=== PATIENT | female | born 1950 | race Caucasian/White ===

== ENCOUNTER → 2023-08-01 | Outpatient (CLI) | payer MEDICARE, OTHER, SELFPAY | END | disposition home or self-care (01) | LOC: PSN 10:33 | PROVIDERS: PCP Nurse Practitioner Family; Referring Provider Internal Medicine Critical Care Medicine; Visit Provider Internal Medicine Critical Care Medicine | DX: R06.09 Other forms of dyspnea (principal) | CPT/HCPCS: 94060; 94726; 94729 ==

== ENCOUNTER → 2023-09-02 | Outpatient (CLI) | payer MEDICARE, OTHER, SELFPAY ==
--- NOTE | 2023-09-02 12:16 | ECHOD_ITS ---
Reason For Study: DYSPNEA Procedure This was a 2D Doppler, Color Flow transthoracic echocardiogram. Exam performed in department. Left Ventricle Normal LV size. The estimated ejection fraction is 70 %. No evidence for diastolic dysfunction. No regional wall motion abnormalities noted. Right Ventricle Normal RV size. Normal systolic function. Atria Normal left atrium. Normal right atrium. No doppler evidence for ASD. Mitral Valve There is no mitral valve stenosis. No mitral valve insufficiency. Tricuspid Valve There is no tricuspid stenosis. Unable to estimate RV systolic pressure due to inadequate jet, pulmonary artery pressure probably normal. Aortic Valve Trisinus/trileaflet aortic valve. There is no aortic stenosis. No aortic valve insufficiency. Pulmonic Valve There is no pulmonic valvular stenosis. No pulmonic valve insufficiency. Great Vessels Normal aortic root. Pericardium/Pleural No pericardial effusion. MMode/2D Measurements & Calculations LVIDd: 3.5 cm IVSd: 0.96 cm LAV(MOD-bp): 36.6 ml LVIDs: 2.2 cm LVPWd: 0.91 cm LAV(MOD-bp) Indexed: 20.3 ml/m2 RVDd: 2.3 cm FS: 36.9 % LAV(MOD-sp2): 42.4 ml LAV(MOD-sp4): 22.7 ml SV(MOD-sp4): 35.2 ml SV(sp4-el): 38.1 ml LVAd ap4: 21.1 cm2 LVLd ap4: 7.3 cm EDV(MOD-sp4): 50.0 ml EDV(sp4-el): 52.2 ml LVAs ap4: 9.5 cm2 LVLs ap4: 5.4 cm ESV(MOD-sp4): 14.8 ml ESV(sp4-el): 14.1 ml EF(MOD-sp4): 70.5 % EF(sp4-el): 72.9 % LA A4 area: 10.3 cm2 RA A4 area: 9.9 cm2 TAPSE: 2.6 cm Time Measurements MV dec time: 0.27 sec Doppler Measurements & Calculations MV E max rasheed: 91.2 cm/sec Lat Peak E' Rasheed: 8.4 cm/sec Med Peak E' Rasheed: 8.9 cm/sec MV A max rasheed: 101.0 cm/sec E/E' lat: 10.9 E/E' med: 10.3 MV E/A: 0.90 MV V2 max: 104.4 cm/sec MV dec slope: 352.9 cm/sec2 Ao V2 max: 158.2 cm/sec MV max P.4 mmHg Ao max P.1 mmHg MV V2 mean: 67.7 cm/sec Ao V2 mean: 111.7 cm/sec MV mean P.1 mmHg Ao mean P.6 mmHg MV V2 VTI: 33.4 cm Ao V2 VTI: 33.6 cm AV (velocity ratio): 0.90 LV V1 max: 132.9 cm/sec PA V2 max: 100.8 cm/sec LV V1 max P.1 mmHg PA V2 mean: 67.3 cm/sec LV V1 mean P.2 mmHg LV V1 mean: 96.9 cm/sec LV V1 VTI: 30.1 cm ECHO/Echo Complete Interpretation Summary The estimated ejection fraction is 70 %. No evidence for diastolic dysfunction. Ordering Physician: Rafael Pan Referring Physician: Rafael Pan Performed By: Sandra Ochoa RCS
[2023-09-02 12:51] VITALS: PULSE 100; PULSE 105; PULSE 106; PULSE 108; PULSE 84; PULSE 87; PULSE 90; PULSE 99; O2SAT 86; O2SAT 88; O2SAT 91; O2SAT 92; O2SAT 96
--- OUTSIDE RECORDS SUMMARY | 2023-09-02 15:11 | XMS RPT_ITS | CCD ---
Author Name Unknown Address [address] [place] [address] Organization [facility] Care Team Providers Care Cruise Consultant Name Role Phone VIVIANA HUDSON Unavailable Unavailable VIVIANA HUDSON Unavailable Unavailable Aylin TREE PRUNER, Barbra Primary Care Provider Aylin TREE PRUNER, Barbra Primary Care Provider SALAS PETERSEN Admitting Unavailab BARBRA Carrillo Primary Care Unavailable SALAS PETERSEN Attending Unavailab le SALAS PETERSEN Referring Unavailab BARBRA Carirllo Primary Care Unavailable OG OJEDA Attending Unavailable BARBRA VIERA Primary Care Unavailable FRANK UP Admitting Unavailable FRANK UP Referring Unavailable SALAS PETERSEN Attending Unavailab BARBRA Carrillo Primary Care Unavailable OG OJEDA Attending Unavailable BARBRA VIERA Primary Care Unavailable SALAS PETERSEN Attending Unavailab le VICSALAS FREEMAN Referring Unavailab le VICSALAS FREEMAN Admitting Unavailab BARBRA Carrillo Primary Care Unavailable DAVID LANDIN Attending Unavailable SALAS PETERSEN Referring Unavailab BARBRA Carrillo Primary Care Unavailable SALAS PETERSEN Admitting Unavailab AMAURY Chino Attending Unavailable SALAS PEETRSEN Referring Unavailab le HIREMATCHERYL Amor Attending Unav ailable CHERYL BECERRIL Referring Unav ailable BARBRA VIERA Primary Care Unavailable SALAS PETERSEN Admitting Unavailab le WATTEARNESTINE Attending Unavailable BARBRA VIERA Primary Care Unavailable VICSALAS Referring Unavailab le Gaby OLMEDO [facility] Primary Care Provider Unavail able Art PT, DPT, Katerine Unavailable Unavailable BARBRA VIERA Primary Care Unavailable HIREMATH, CHERYL HUTCHINSONSHCHARMAINE Attending Unav ailable BARBRA VIERA Primary Care Unavailable VIC, SALAS YBARRA Admitting Unavailab le VIC, SALAS YBARRA Referring Unavailab le HIREMATHCHERYL Attending Unav ailable BARBRA VIERA GENETICS TEACHER Admitting Unavailable BARBRA VIERA GENETICS TEACHER Primary Care Unavailable BARBRA VIERA GENETICS TEACHER Consulting Unavailable BARBRA VIERA GENETICS TEACHER Attending Unavailable PROVIDER, UNKNOWN Consulting Unavailable PROVIDER, UNKNOWN Consulting Unavailable BARBRA VIERA GENETICS TEACHER Admitting Unavailable AYLIN, BARBRA GENETICS TEACHER Primary Care Unavailable BARBRA VIERA GENETICS TEACHER Consulting Unavailable BARBRA VIERA GENETICS TEACHER Attending Unavailable PROVIDER, UNKNOWN Consulting Unavailable PROVIDER, UNKNOWN Consulting Unavailable BARBRA VIERA GENETICS TEACHER Admitting Unavailable BARBRA VIERA GENETICS TEACHER Primary Care Unavailable BARBRA VIERA GENETICS TEACHER Consulting Unavailable BARBRA VIERA GENETICS TEACHER Attending Unavailable PROVIDER, UNKNOWN Consulting Unavailable PROVIDER, UNKNOWN Consulting Unavailable BARBRA VIERA GENETICS TEACHER Consulting Unavailable MARIE, LAWSON PAC Admitting Unavailable MARIE, LAWSON PAC Primary Care Unavailable MARIE, LAWSON PAC Attending Unavailable PROVIDER, UNKNOWN Consulting Unavailable PROVIDER, UNKNOWN Consulting Unavailable BARBRA VIERA GENETICS TEACHER Primary Care Unavailable BARBRA VIERA GENETICS TEACHER Consulting Unavailable BARBRA VIERA GENETICS TEACHER Attending Unavailable BARBRA VIERA GENETICS TEACHER Admitting Unavailable PROVIDER, UNKNOWN Consulting Unavailable PROVIDER, UNKNOWN Consulting Unavailable VIC, SALAS YBARRA Attending Unavailab le GABY, NONA Primary Care Unavailable VIC, SALAS YBARRA Referring Unavailab le VIC, SALAS YBARRA Referring Unavailab le VIC, SALAS YBARRA Attending Unavailab le GABY, NONA Primary Care Unavailable VIC, SALAS YBARRA Referring Unavailab le VIC, SALAS YBARRA Attending Unavailab le GABY, NONA Primary Care Unavailable VIC, SALAS YBARRA Referring Unavailab le VIC, SALAS YBARRA Attending Unavailab le GABY, NONA Primary Care Unavailable VIC, SALAS YBARRA Referring Unavailab le VIC, SALAS YBARRA Attending Unavailab le GABY, NONA Primary Care Unavailable VIC, SALAS YBARRA Referring Unavailab le VIC, SALAS YBARRA Attending Unavailab le GABY, [facility] Primary Care Unavailable VIC, SALAS YBARRA Referring Unavailab le VIC, SALAS YBARRA Attending Unavailab le GABY, [facility] Primary Care Unavailable VIC, SALAS YBARRA Attending Unavailab le GABY, [facility] Primary Care Unavailable VIC, SALAS YBARRA Referring Unavailab le VIC, SALAS YBARRA Attending Unavailab le GABY, [facility] Primary Care Unavailable VIC, SALAS YBARRA Referring Unavailab le VIC, SALAS YBARRA Referring Unavailab le VIC, SALAS YBARRA Attending Unavailab le GABY, [facility] Primary Care Unavailable VIC, SALAS YBARRA Referring Unavailab le VIC, SALAS YBARRA Attending Unavailab le GABY, [facility] Primary Care Unavailable VIC, SALAS YBARRA Referring Unavailab le VIC, SALAS YBARRA Attending Unavailab le GABY, [facility] Primary Care Unavailable Allergies Allergy Classification Reported Allergen(s) Allergy Type Date of Onset Reaction(s) Facility (6 sources) Adhesive Tape Drug allergy (disorder) 6 Other (See Comments) [facility] Repository (1 source) [facility]in Drug [facility]ergy [facility] ([facility] source) Bacitracin Drug Allergy 6 [facility] (1 source) Neomycin Drug Allergy 6 [facility] Repository (1 source) ether Drug allergy (disorder) 6 [facility] (1 source) polymyxin B Drug allergy (disorder) 6 [facility] Repository (5 sources) Neomycin-Bacitr acin-Polymyxin Propensity to adverse reactions to drug 6 Blisters [facility] Medications Current Medications Medication Drug Class(es) Dates Sig (Normalized) Sig (Original) [id number] 200 actuat albuterol 0.09 mg/actuat metered dose inhaler (7 sources) beta2-Adrenergic Agonist Start: 10-21-2022 Ventolin HFA 90 mcg/actuation inhaler as needed . 0 10/21/2022 Active Problems Active Problems Problem Classification Problem Date Documented Date Episodic/Chronic Chronic obstructive pulmonary disease and bronchiectasis (13 sources) Chronic obstructive lung disease; Translations: [Chronic obstructive pulmonary disease, unspecified] Onset: 06-12-2021 12-20-2021 Chronic Disorders of lipid metabolism (13 sources) Hyperlipidemia; Translations: [Hyperlipidemia, unspecified] Onset: 06-12-2021 12-20-2021 Chronic Essential hypertension (12 sources) Essential hypertension; Translations: [Essential (primary) hypertension] Onset: 06-13-2021 12-20-2021 Chronic Malaise and fatigue (1 source) Weakness; Translations: [Weakness] Onset: 02-05-2023 Episodic Nutritional deficiencies (1 source) Vitamin D deficiency, unspecified; Translations: [Vitamin D deficiency, unspecified] Onset: 09-04-2022 Chronic Other hereditary and degenerative nervous system conditions (5 sources) Hereditary essential tremor; Translations: [Essential tremor] Chronic Other hereditary and degenerative nervous system conditions (8 sources) Essential tremor; Translations: [Essential tremor] Onset: 11-07-2022 10-03-2022 Chronic Other hereditary and degenerative nervous system conditions (4 sources) Essential tremor; Translations: [Essential tremor] Onset: 11-07-2022 Chronic Other nervous system disorders (1 source) Abnormal gait; Translations: [Unspecified abnormalities of gait and mobility] 12-04-2022 Episodic Other nervous system disorders (2 sources) Unspecified abnormalities of gait and mobility; Translations: [Unspecified abnormalities of gait and mobility] Onset: 12-04-2022 Episodic Thyroid disorders (14 sources) Autoimmune thyroiditis; Translations: [Autoimmune thyroiditis] Onset: 06-13-2021 12-20-2021 Chronic Past or Other Problems Problem Classification Problem Date Documented Da te Episodic/Chronic Fluid and electrolyte disorders (1 source) Hypokalemia; Translations: [Hypokalemia] Onset: 11-05-2022 Episodic Other connective tissue disease (10 sources) Abnormal posture; Translations: [Abnormal posture] Onset: 05-23-2022 05-23-2022 Episodic Other connective tissue disease (2 sources) Abnormal posture; Translations: [Abnormal posture] Onset: 05-23-2022 Episodic Other nutritional; endocrine; and metabolic disorders (1 source) Overweight; Translations: [Overweight] Onset: 09-04-2022 Episodic Residual codes; unclassified (11 sources) Activity of daily living (ADL) alteration; Translations: [Other specified health status] Onset: 05-23-2022 Episodic Residual codes; unclassified (11 sources) Impairment; Translations: [Other specified health status] Onset: 05-23-2022 Episodic Residual codes; unclassified (2 sources) Other specified health status; Translations: [Other specified health status] Onset: 05-23-2022 Episodic Results Test Name Value Interpretation Reference Range Facil ity Vital Signs Date Time Vital Sign Value Performing Clinician Faci lity 12-04-2022 13:17-0400 Body mass index (BMI) [Ratio] 30.06 kg/m2 Salas Petersen MD Work Phone: [facility] 12-04-2022 13:17-0400 Body weight 69.81 kg Salas Petersen MD Work Phone: [facility] 12-04-2022 13:17-0400 Diastolic blood pressure 78 mm[Hg] Salas Petersen MD Work Phone: [facility] Encounters Encounter Date Encounter Type Care Provider Facility Start: 03-07-2023 End: 03-07-2023 ambulatory BARBRA MASSEY [facility] Start: 02-26-2023 End: 02-27-2023 ambulatory [facility] Start: 02-19-2023 ambulatory BARBRA MASSEY [facility] Start: 02-13-2023 End: 02-14-2023 ambulatory [facility] Start: 02-12-2023 End: 02-13-2023 ambulatory [facility] Start: 02-11-2023 End: 02-11-2023 ambulatory BARBRA [facility] Start: 02-11-2023 End: 02-11-2023 Office outpatient visit 15 minutes Cheryl Becerril MD Work Phone: [facility] Procedures Date Procedure Procedure Detail Performing Clinician Start: 01-26-2016 Mammography Frank Up MD Work Phone: Plan of Treatment Date Care Activity Detail Author Start: 01-29-2028 Administration of diphtheria + tetanus + acellular pertussis vaccine DTAP/TDAP/TD VACCINE (2 - Td or Tdap) [facility] Start: 01-29-2028 Tetanus vaccination Tetanus: Every 10yrs [facility] Start: 02-26-2023 End: 02-26-2023 Patient encounter procedure [facility] Start: 02-22-2023 Influenza vaccination Sequential Influenza Vaccine (#1) [facility] Start: 02-22-2023 Influenza vaccination given INFLUENZA VACCINE (#1) [facility] Start: 02-19-2023 End: 02-19-2023 Patient encounter procedure [facility] Start: 02-12-2023 End: 02-12-2023 Patient encounter procedure [facility] Start: 02-11-2023 End: 02-11-2023 Patient encounter procedure 02/11/2023 11:45 AM EDT Office Visit [facility] [address] [place] [address] Cheryl Becerril MD [address] [place] [address] [facility] Start: 02-05-2023 End: 02-05-2023 Patient encounter procedure [facility] Start: 01-29-2023 End: 01-29-2023 Patient encounter procedure [facility] Start: 01-22-2023 End: 01-22-2023 Patient encounter procedure 01/22/2023 Appointment Physical Therapy Salas Petersen MD [address] [place] [address] Vitaly [id number] Miles PTA [facility] Start: 01-15-2023 End: 01-15-2023 Patient encounter procedure 01/15/2023 Appointment Physical Therapy Salas Petersen MD [address] [place] [address] Skinny [id number], September, [facility] Start: 01-08-2023 End: 01-08-2023 Patient encounter procedure 01/08/2023 Appointment Physical Therapy Salas Petersen MD [address] [place] [address] Constantine Ireland PTA [facility] Start: 01-01-2023 End: 01-01-2023 Patient encounter procedure 01/01/2023 Appointment Physical Therapy Salas Petersen MD [address] [facility] [address] [place] [address] Skinny [id number], September, [facility] Start: 12-04-2022 End: 12-04-2022 Patient encounter procedure 12/04/2022 1:45 PM EDT Office Visit [facility] [address] [place] [address] Salas Petersen MD [address] [facility] [place] [address] Discharge Disposition: Home [facility] Start: 08-20-2022 COVID-19 VACCINE (6 - Pfizer series) COVID-19 VACCINE (6 - Pfizer series) [facility] Start: 02-22-2022 Influenza vaccination Sequential Influenza Vaccine (#1) [facility] Start: 01-29-2022 End: 01-29-2022 Patient encounter procedure 01/29/2022 Office Visit Neurology Nataliya Ocasio, GENETICS TEACHER [address] [facility] [address] [facility] [facility] [address] [place] [address] [facility] Start: 01-25-2017 Screening for malignant neoplasm of breast Mammogram [facility] Start: 01-25-2017 Screening mammography MAMMOGRAM [facility] Start: 09-03-2015 Fall risk assessment [facility] Start: 09-03-2015 Glaucoma screening GLAUCOMA/EYE EXAM AGE 65+ [facility] Start: 2000 Administration of herpes zoster vaccine Zoster Vaccines (1 of 2) [facility] Start: 2000 Screening for malignant neoplasm of colon [facility] Start: 2000 Zoster vaccine hzv live for subcutaneous use ZOSTER (SHINGLES) VACCINE (1 of 2) [facility] Start: 09-03-1995 Screening for malignant neoplasm of colon [facility] Start: 1968 ANNUAL WELLNESS VISIT ANNUAL WELLNESS VISIT [facility] Start: 1968 Hepatitis C screening Hepatitis C Screening [facility] Start: 1962 Depression screening using PHQ-9 (Patient Health Questionnaire 9) score [facility] Start: 1961 Administration of diphtheria + tetanus + acellular pertussis vaccine DTAP/TDAP/TD VACCINE (1 - Tdap) [facility] Start: 1953 History and physical examination, annual for health maintenance Wellness Visit [facility] Start: 09-03-1951 Thyroid stimulating hormone measurement TSH [facility] Start: 1950 Hepatitis C screening HEPATITIS C SCREENING [facility] Start: 1950 Screening for malignant neoplasm of colon [facility] Start: 1950 Screening for osteoporosis Dexa Scan [facility] Immunizations Immunization Date Immunization Notes Care Provider Fa cility 04-19-2022 Moderna Bivalent Booster:6-11 YRS 0.25mL; 12+YRS 0.5mL Amaury Lemon OT [facility] 04-19-2022 influenza virus vaccine, unspecified formulation Salas Petersen MD Work Phone: [facility] 09-20-2021 Pfizer 12+ Years sony-sucrose COVID-19 vaccine Amaury Lemon OT [facility] 04-19-2021 Pfizer SARS-CoV-2 Vaccination Frank Up MD Work Phone: [facility] 08-25-2020 Pfizer SARS-CoV-2 Vaccination Frank Up MD Work Phone: [facility] 08-04-2020 Pfizer SARS-CoV-2 Vaccination Frank Up MD Work Phone: [facility] Payers Date Payer Category Payer Private Health Insurance [facility] [id number] 2015 Medicare [id number] 2015 Medicare [id number] 2015 Private Health Insurance [id number] 1950 Unknown [id number] 2.16. 840.1.472742.3.579.2.900 1950 Unknown [id number] 2.16. 840.1.294435.3.579.2.900 1950 Unknown [id number] 2.16. 840.1.937223.3.579.2.900 1950 Unknown [id number] 2.16. 840.1.907512.3.579.2.900 1950 Unknown [id number] 2.16. 840.1.096356.3.579.2.900 1950 Unknown [id number] 2.16. 840.1.106530.3.579.2.900 1950 Unknown [id number] 2.16. 840.1.161930.3.579.2.900 1950 Unknown [id number] 2.16. 840.1.079916.3.579.2.900 1950 Unknown [id number] 2.16. 840.1.227146.3.579.2.900 1950 Unknown [id number] 2.16. 840.1.403308.3.579.2.903 1950 Unknown [id number] 2.16. 840.1.117870.3.579.2.903 1950 Unknown [id number] 2.16.8 40.1.134695.3.579.2.651 1950 Unknown [id number] 2.16.8 40.1.858781.3.579.2.651 1950 Unknown [id number] 2.16.84 0.1.352944.3.579.2.651 1950 Unknown [id number] 2.16.84 0.1.147226.3.579.2.651 1950 Unknown [id number] 2.16.84 0.1.383657.3.579.2.651 1950 Unknown [id number] 2.16. 840.1.128668.3.579.2.297 1950 Unknown [id number] 2.16. 840.1.992428.3.579.2.297 1950 Unknown [id number] 2.16. 840.1.398979.3.579.2.297 1950 Unknown [id number] 2.16. 840.1.946852.3.579.2.297 1950 Unknown [id number] 2.16. 840.1.481884.3.579.2.297 1950 Unknown [id number] 2.16. 840.1.795850.3.579.2.297 1950 Unknown [id number] 2.16. 840.1.289734.3.579.2.297 1950 Unknown [id number] 2.16. 840.1.377646.3.579.2.297 1950 Unknown [id number] 2.16. 840.1.211514.3.579.2.297 1950 Unknown [id number] 2.16. 840.1.432694.3.579.2.297 1950 Unknown [id number] 2.16. 840.1.466060.3.579.2.297 1950 Unknown [id number] 2.16. 840.1.590208.3.579.2.297 Social History Date Type Detail Facility Start: 12-20-2021 Tobacco smoking status NHIS Never smoked tobacco [facility] Start: 12-20-2021 End: 12-04-2022 [facility] Start: 03-13-2016 End: 12-20-2021 Tobacco use and exposure Smokeless tobacco non-user [facility] Start: 12-20-2021 End: 02-11-2023 Alcohol intake Ex-drinker (finding) [facility] Start: 1950 Sex Assigned At Not on file [facility] Start: 12-10-2021 End: 11-05-2022 Exposure to SARS-CoV-2 (event) Not sure [facility] Start: 04-30-2022 End: 12-04-2022 Tobacco use panel [facility] Start: 09-06-2021 Gender identity Identifies as female gender (finding) [facility] Start: 09-06-2021 Sexual orientation Heterosexual (finding) [facility] Start: 03-13-2016 Tobacco smoking status NHIS Occasional tobacco smoker [facility] Clinical Notes 12-20-2021 to 02-11-2023 Lexy Mc RN - 02/11/2023 12:12 PM Cheryl Ayala MD - 02/11/2023 12:00 PM EDTReangella Haider [id number] PTA - 02/05/2023 10:00 AM EDTDischarge Instructions Note Date & Type Note Facility 02-11-2023 History of Present illness Narrative Patient here for follow up. Patient doing well. No headaches, no falls in gait training, no visual issues and tremors much better. 11/07/22 HIFU Images from the original note were not included. Dear Barbra Lilly, TREE PRUNER Ros Jaimes presents for a follow-up visit today. She presents approximately 3 months after having undergone left-sided high intensity focused ultrasound thalamotomy for control of right upper extremity essential tremor. Following the procedure, she has had significant improvement in tremor symptoms in the right upper extremity. She states that she is able to partake in many of her hobbies that she was previously to disabled to do. She denies any numbness, tingling or weakness at this point. She did have some mild gait instability following the procedure, but she states that this is improved significantly with physical therapy. She is very pleased with her result following the procedure. PHYSICAL EXAM Patient is awake, alert. Conjugate gaze noted Hearing grossly intact Speech is fluent Face is symmetric Tongue is midline No pronator drift Patient has 5/5 strength in both upper and lower extremities bilaterally Minimal, if any action and postural tremor involving the right upper extremity. Moderate action/postural tremor affecting the left upper extremity (untreated). Gait is intact IMPRESSION Stable postprocedural course PLAN: At this point, as she is doing quite well, I am happy to follow-up with her on an as-needed basis. She wishes to wait to see how she feels in about a year before she considers ultrasound thalamotomy on the right side to treat left upper extremity tremor symptoms. If I could be of further assistance, please feel free to contact me. Cheryl Becerril MD, FAANS documented in this encounter [facility] 02-05-2023 Miscellaneous Notes Images from the original note were not included. [facility] [id number] [facility] [address] Physical Therapy Daily Note Patient Name: Ros Jaimes 1950 Physician: Salas Petersen, * Medical Dx: Subjective: Pain Assessment Pain Rating 1 (on scale of 0 - 10): 0/10 Pt reports she is doing okay this visit. Pt states that she had increased fatigue after last visit but no increase in pain. Objective: Reassessment Visit: No PT Rationale for Treatment PT Rationale For Treatment: Increase ROM, Increase Strength, Increase Soft tissue mobility, Increase Flexibility, Improve balance, Increase Proprioception, Improve gait PT Activities PT Activity1: NuStep L3x5' (seat 6, UE 8) PT Activity3: Airex: PT Activity4: Standing 3 way hip x15 MICHAEL PT Activity5: Standing Alt August x15 MICHAEL PT Activity6: Standing HS curls x15 MICHAEL PT Activity8: Mini squats x10 PT Activity9: Bosu step up x10 PT [id number]: Mini lunge x10 PT [id number]: side steps x3 laps // bars Assessment: Pt tolerated treatment well this visit. Pt was progressed with new exercises in the // bars with good tolerance. Added mini squats, lunges and bosu step ups to challenge pt balance. Min verbal cues throughout for correct form and technique. Overall pt tolerated treatment very well with no pain at exit. Plan: Continue per POC. Constantine Vitaly [id number], SPRAY DYER February 05, 2023 Physical Therapy Number of Visits: 12/03 Per Insurance: medicare documented in this encounter [facility] 02-05-2023 Progress note Formatting of t his note is different from the original. Images from the original note were not included. [facility] [address] [facility] [id number] Physical Therapy Daily Note Patient Name: Ros Gonzalez Enedelia Jaimes 1950 Physician: Salas Petersen, * Medical Dx: Subjective: Pain Assessment Pain Rating 1 (on scale of 0 - 10): 0/10 Pt reports she is doing okay this visit. Pt states that she had increased fatigue after last visit but no increase in pain. Objective: Reassessment Visit: No PT Rationale for Treatment PT Rationale For Treatment: Increase ROM, Increase Strength, Increase Soft tissue mobility, Increase Flexibility, Improve balance, Increase Proprioception, Improve gait PT Activities PT Activity1: NuStep L3x5' (seat 6, UE 8) PT Activity3: Airex: PT Activity4: Standing 3 way hip x15 MICHAEL PT Activity5: Standing Alt August x15 MICHAEL PT Activity6: Standing HS curls x15 MICHAEL PT Activity8: Mini squats x10 PT Activity9: Bosu step up x10 PT [id number]: Mini lunge x10 PT [id number]: side steps x3 laps // bars Assessment: Pt tolerated treatment well this visit. Pt was progressed with new exercises in the // bars with good tolerance. Added mini squats, lunges and bosu step ups to challenge pt balance. Min verbal cues throughout for correct form and technique. Overall pt tolerated treatment very well with no pain at exit. Plan: Continue per POC. Constantine Haider [id number], SPRAY DYER February 05, 2023 Physical Therapy Number of Visits: 12/03 Per Insurance: medicare [employer] 01-29-2023 Progress note Formatting of t his note is different from the original. Images from the original note were not included. [facility] [id number] [employer] [facility] [id number] Physical Therapy Daily Note Patient Name: Ros Jaimes 1950 Physician: Salas Petersen, * Medical Dx: Subjective: Pain Assessment Pain Rating 1 (on scale of 0 - 10): 2/10 Pain Location 1: L thumb Pt arrives with 2/10 pain in L thumb. Reports she was out pulling weeds yesterday. Reports compliance with HEP. Objective: Reassessment Visit: No PT Rationale for Treatment PT Rationale For Treatment: Increase ROM, Increase Strength, Increase Soft tissue mobility, Increase Flexibility, Improve balance, Increase Proprioception, Improve gait PT Activities PT Activity1: NuStep L3x5' (seat 6, UE 8) PT Activity3: Airex: PT Activity4: Standing [address] way hip x15 MICHAEL PT Activity5: Standing Alt August x15 MICHAEL PT Activity6: Standing HS curls x15 MICHAEL PT Activity7: Fwd 6 step ups R/L lead x10 MICHAEL Assessment: Pt viviane tx well. Increased resistance on NuStep. Pt required mn vc's for correct technique and maintaining good form throughout tx. Increased all standing ther ex reps from 12 to 15 with good tolerance. All standing ther ex performed on Airex with B UE support on // bars. Reports no change in pain upon exit. Plan: Continue per PT POC. September, SPRAY DYER January 29, 2023 Physical Therapy Number of Visits: 11/02 Per Insurance: medicare [facility] 01-22-2023 Miscellaneous Notes Images from the original note were not included. [facility] [id number] [employer] [facility] [id number] Physical Therapy Daily Note Patient Name: Ros Laird Theodore 1950 Physician: Salas Petersen, * Medical Dx: Subjective: Pain Assessment Pain Rating 1 (on scale of 0 - 10): 0/10 Pt reports that she is doing okay. Pt states that she felt fine after last visit. Pt reports that she feels like she is off balance this visit. Objective: Reassessment Visit: No PT Rationale for Treatment PT Rationale For Treatment: Increase ROM, Increase Strength, Increase Soft tissue mobility, Increase Flexibility, Improve balance, Increase Proprioception, Improve gait PT Activities PT Activity1: NuStep L2x5' (seat 6, UE 8) PT Activity3: Airex: PT Activity4: Standing 3 way hip x12 MICHAEL PT Activity5: Standing Alt March x12 MICHAEL PT Activity6: Standing HS curls x12 MICHAEL PT Activity7: Fwd 6 step ups R/L lead x10 MICHAEL PT Activity8: Lateral step ups 6 x10 ea PT [id number]: Walking marches 3 laps // bars PT [id number]: side steps x3 laps // bars Assessment: Pt tolerated treatment well this visit. Continued with // bar exercises on airex with increased reps. Pt tolerated well without complaints. Pt progressed with walking marches, side steps and lateral step ups this date with good tolerance. Min verbal cues throughout for correct form and technique. Pt with no complaints at exit. Pt educated on the potential of increased soreness. Plan: Continue per POC. Constantine Haider [id number], SPR[place] January 22, 2023 Physical Therapy Number of Visits: 10/03 Per Insurance: medicare documented in this encounter [facility] 01-22-2023 Progress note Formatting of t his note is different from the original. Images from the original note were not included. [facility] [id number] [employer] [facility] [id number] Physical Therapy Daily Note Patient Name: Ros Jaimes 1950 Physician: Salas Petersen, * Medical Dx: Subjective: Pain Assessment Pain Rating 1 (on scale of 0 - 10): 0/10 Pt reports that she is doing okay. Pt states that she felt fine after last visit. Pt reports that she feels like she is off balance this visit. Objective: Reassessment Visit: No PT Rationale for Treatment PT Rationale For Treatment: Increase ROM, Increase Strength, Increase Soft tissue mobility, Increase Flexibility, Improve balance, Increase Proprioception, Improve gait PT Activities PT Activity1: NuStep L2x5' (seat 6, UE 8) PT Activity3: Airex: PT Activity4: Standing 3 way hip x12 MICHAEL PT Activity5: Standing Alt March x12 MICHAEL PT Activity6: Standing HS curls x12 MICHAEL PT Activity7: Fwd 6 step ups R/L lead x10 MICHAEL PT Activity8: Lateral step ups 6 x10 ea PT [id number]: Walking marches 3 laps // bars PT [id number]: side steps x3 laps // bars Assessment: Pt tolerated treatment well this visit. Continued with // bar exercises on airex with increased reps. Pt tolerated well without complaints. Pt progressed with walking marches, side steps and lateral step ups this date with good tolerance. Min verbal cues throughout for correct form and technique. Pt with no complaints at exit. Pt educated on the potential of increased soreness. Plan: Continue per POC. Constantine Haider [id number], [place] January 22, 2023 Physical Therapy Number of Visits: 10/03 Per Insurance: medicare [facility] 01-01-2023 Progress note Formatting of t his note is different from the original. Images from the original note were not included. [facility] [id number] [facility] [id number] Physical Therapy Daily Note Patient Name: Ros Jaimes 1950 Physician: Salas Petersen, * Medical Dx: Subjective: Pain Assessment Pain Rating 1 (on scale of 0 - 10): 0/10 Pt arrived with no pain. Reports she stopped using her cane about 3 days ago. Denies changes since last session. Reports compliance with HEP. Objective: Reassessment Visit: No PT Rationale for Treatment PT Rationale For Treatment: Increase ROM, Increase Strength, Increase Soft tissue mobility, Increase Flexibility, Improve balance, Increase Proprioception, Improve gait PT Activities PT Activity1: NuStep L1x5' (seat 6, UE 8) PT Activity2: LAQ 10x3 PT Activity3: Standing HS curls x10 MICHAEL PT Activity4: Standing 3 way hip x10 MICHAEL PT Activity5: Standing Alt March x10 MICHAEL PT Activity6: Fwd 6 step ups R/L lead x10 PT Activity8: Bridges attempted but dc 2/2 LE cramping PT Activity9: Clamshells attempted but dc 2/2 unable to lie on her side Assessment: Goals and HEP reviewed, pt verbalized understanding and agrees. Has correct return demonstration with HEP. Pt instructed to not push through increased pain and rest as needed. Required mn vc's for correct technique and maintaining good form throughout tx. Attempted bridges and clamshells but d/c 2/2 increased leg cramping and unable to tolerate. Required short rest breaks 2/2 fatigue and SOB. Pt viviane tx well, reports no pain upon exit. Plan: Continue per PT POC. September Skinny, [place] [place] January 01, 2023 Physical Therapy Number of Visits: 08/05 Per Insurance: medicare [facility] 12-24-2022 Hospital Discharge instructions Katerine Butt PT, DPT - 12/24/2022 10:20 AM EDT After Hours Care Information Please dial 911 or report to the closest emergency department for emergencies outside of the department s normal business hours. For non-emergency questions or concerns, the patient may call the office on the next business day at [phone] or call the [facility] NurseLine at [phone] or . When to stay home: We appreciate your best efforts to attend scheduled appointments. However, there are times we request you stay home. Here are some guidelines to help you decide whether you should stay home: Elevated temperature, 100 degrees or higher Vomiting or diarrhea (any episode in the last 24 hours) Lice, bed bugs, scabies Skin infections including impetigo, ringworm, unexplained rashes, or shingles [place] [facility] or any other illness that may be given to other therapy participants or therapists Severe respiratory infections, sore throat, severe colds or flu Blood pressure above 180/110 While under the influence of alcohol, non-prescribed/recreational drug(s), or illegal substance(s) If you have any questions regarding whether you should attend therapy, please call your therapist at [phone]. The Rehab staff reserves the right to cancel therapy for you due to illness. CANCELLATION/NO SHOW POLICY Administrative Discharge: Effective December 22, 2016, Cancellation/No Show policy ( Administrative Discharge ) will be implemented. This policy has been adopted so that treatments prescribed by your physician can be carried out in the most effective and efficient manner possible. Missed appointments, whether by cancellation or no show, result in decreased benefit of services rendered and tie up appointment times that other patients could use. We encourage you to discuss with your therapist or with the administrative professionals your schedule needs. We will be happy to work with you regarding any scheduling issues. The policy below explains situations where a patient may be administratively discharged: Administrative Discharge will occur in the following situations: Upon a patient s 2nd no show during the course of treatment, all remaining appointments will be removed. The patient then has two weeks from that date to call and speak with their supervising therapist about continuing treatment. If the patient fails to call, they will be discharged. If a patient cancels 3 appointments (or a combination of no show/cancellations) at any time during the treatment process, a review of all remaining appointments will occur by the supervising therapist. This review will lead to scheduling changes or discharge of the patients. Your physician will also receive notification of an administrative discharge if it occurs. If you need assistance in reading or understanding this policy, please let us know and we will be glad to help. I have read and/or have been fully informed of the Administrative Discharge policy and understand that repeated no-shows or cancellations may result in such discharge. [facility] OUTPATIENT REHABILITATION PAYMENT POLICY I UNDERSTAND I AM RESPONSIBLE FOR KNOWING THE TERMS OF MY INSURANCE POLICY. IF I CHOOSE TO HAVE A SERVICE DONE THAT IS NOT COVERED BY MY INSURANCE OR IF I FAIL TO OBTAIN A PRE-CERTIFICATION OR REFERRAL BY MY INSURANCE COMPANY I WILL BE HELD RESPONSIBLE FOR THE PAYMENT. I HAVE READ ALL THE ABOVE STATEMENTS AND I AGREE TO THE TERMS OF THIS AGREEMENT. If financial assistance is needed, please call Resource [facility]ing at [phone] or [phone]. documented in this encounter [facility] 12-24-2022 Miscellaneous Notes Images from the original note were not included. [facility] [id number] [facility] [id number] PHYSICAL THERAPY NEURO EVALUATION Brief Summary Patient Name: Ros Jaimes Date of : 1950 Age: 72 y.o. Sex: female Physician: Salas Petersen, * Evaluation Date: 12/24/2022 Onset: 11/09/22 Follow up: not stated Treatment Order: eval and treat Medical Diagnosis: Therapy Diagnosis: decreased strength, impaired gait and balance Comments/Summary: Pt is a 72 yo female presenting to the clinic with a chief complaint of weakness and balance issues. She underwent a High Intensity Focused Ultrasound procedure on 11/09/22 for improving central tremors. Since then she states that she has been having weakness, especially in her R hip. Pt has been ambulating with single point cane, and states that she always feels like she veering to the R when walking. Skilled PT is needed to increase strength and improve balance and gait. Pt tolerated exercises well and was given handout for HEP. Plan is to see pt 1 time weekly for therapeutic and neuro re-ed exercise, manual therapy, and modalities as needed for symptom management. Recommendations: Frequency: 1-2 times weekly Duration: 12 visits Rehab potential: good for goals Length of Treatment: 30 min Prior Level of Function: Independent Comorbidities: has a past medical history of Fractures. Barriers to achieve goals: none identified Certified through: 03/24/23 Patient Goals: improve strength, gait, and balance Short Term Goals: 6 visits Short Term Goal 1: Pt will be compliant with HEP Short Term Goal 2: Pt will demonstrate ascending/descending therapy stairs with single UE use for improved stair negotiation. Financial Health Counselor Goals:12 visits Financial Health Counselor Goal 1: Pt will be independent with HEP Financial Health Counselor Goal 2: Pt will increase 30 STS score to at least 13 for improved endurance and sit to stand transfer Financial Health Counselor Goal 3: Pt will improve BLE MMT to 5/5 globally for improved stability Alf Goal 4: Pt will increase DGI score to at least 20 for improved ambulation Financial Health Counselor Goal 5: Pt will report that she no longer feels like she is veering to the R with ambulation for decreased risk of falls PHYSICAL IMPAIRMENT OF BODY STRUCTURES AND FUNCTIONS: Decreased Range of Motion, Decreased Flexibility Impaired Joint Mob., Decreased Muscular Strength, Disuse Atrophy, Capsular/Joint Dysfunction, Soft Tissue Dysfunction, Lack of Coordination, Abnormal Muscle Tone, Postural Dysfunction, Biomechanical Dysfunction, Abnormal Gait/Impaired Gait Pattern, and Impaired Balance ACTIVITY AND PARTICIPATION RESTRICTIONS: Self-care, Decreased Standing Tolerance, Decreased Walking Tolerance, Difficulty Standing/Squating from a Low Surface, Home Management, Household Ambulation, and Community Activity STABILITY: Stable: no significant concerns with progression/healing COMPLEXITY: low RECOMMENDED TREATMENT PLAN: Modalities: Heat/Cold, Ultrasound (50120, 83141), and Electrical Stimulation (40595) Therapeutic Exercise: PROM/AAROM/AROM (83003, 39321), Stretching (22552), Strengthening (60311), Proprioception (69636), Neuro Re-education (82346), Balance (16293, 37143, 45655), Coordination (44446, 23939), and Trunk Stabilization (92067) Patient Education/Functional Training (33365, 89559, 86962): Posture, Body Mechanics, Home Exercise Program, Gait Training (19111), Functional Activities, and Symptom Management Manual Techniques (12669): Soft Tissue Mobilization, Myofascial Release, Joint Mobilization, Muscle Energy Technique (24219), and Manual Distraction/Traction Physician Comments: I certify the need for these services, based on the Medical and Treatment diagnosis, furnished under this plan of treatment while under my care. Physician Signature (If not electronically signed): Date PHYSICAL THERAPY NEURO EVALUATION Fall Risk Assessment: Fall Risk: Yes History of Present Illness: High Intensity Focused Ultrasound for her tremors. She has had central tremors for about 32 years. 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 Her tremors have progressively gotten worse. She states that she has had the HIFU done for her R side. She cannot do the other side for a year. Pt reports that she has seen a lot of improvement. Pt reports that when she is out and about she uses the SPC, because she always wants to go to the R when walking. Procedure was done 11/09/22. Pt reports that she has weakness, more in R hip than anywhere. Pain: none Previous Level of Function: Independent Current Level of Function: impaired balance, difficulty with stair negotiation, difficulty with going from sit to stand. Behavior/Presentation: pleasant Personal Factors: none identified Comorbidities: has a past medical history of Fractures. Home Equipment/ Environment: none Mentation/ Communication: Orientated X4 Work Status/ Duties: retired Patient/Caregiver Goals: improve strength and balance Trunk Control/ Posture: wnl Sensation/Edema/Reflexes: no abnormalities Proprioception: impaired, body wants to veer to the right Basic Transfers: Independent Advanced Transfers: Independent Wheelchair Mobility: Independent Bed Mobility: Short-sitting to supine: Independent Supine to short-sitting: Independent Rolling: Independent Scooting: Independent Ambulation Status: Independent Assistance needed: no Device: Single point cane Range of Motion/Strength (*=painful) *WFL unless otherwise noted UE ROM R ROM L MMT R MMT L SHOULDER FLX (180) wfl wfl 5/5 globally 5/5 globally SHOULDER EXT (45) SHOULDER ABD (180) SHOULDER ER (90) ELBOW FLX (150) ELBOW EXT (0) SUPINATION (80) PRONTION (80) WRIST FLX (80) WRIST EXT (70) GROSS GRASP LE ROM R ROM L MMT R MMT L HIP FLX (120) wfl wfl 4+/5 4+/5 HIP EXT (30) HIP ABD (45) 5/5 4+/5 HIP ADD (45) 4/5 5/5 HIP IR (45) 5/5 5/5 HIP ER (45) 5/5 5/5 KNEE EXT (0) 5/5 4+/5 KNEE FLX (135) / 5/5 ANKLE DF (20) / 5/5 ANKLE PF (50) / 5/5 ANKLE DAVID (15) / 5/5 GREAT TOE EXT (70) GREAT TOE FLEX (45) Balance Test DGI: 06/16 30 TST: 30 reps Functional Outcome Tool Utilized: see balance tests Impression based on special tests or outcome measures: decreased strength, impaired gait and balance Assessment: Pt is a 72 yo female presenting to the clinic with a chief complaint of weakness and balance issues. She underwent a High Intensity Focused Ultrasound procedure on 11/09/22 for improving central tremors. Since then she states that she has been having weakness, especially in her R hip. Pt has been ambulating with single point cane, and states that she always feels like she veering to the R when walking. Skilled PT is needed to increase strength and improve balance and gait. Pt tolerated exercises well and was given handout for HEP. Plan is to see pt 1 time weekly for therapeutic and neuro re-ed exercise, manual therapy, and modalities as needed for symptom management. Plan for next session: -nustep -HS curls -bridges -clamshells -airex balance In my professional opinion, skilled therapy is medically necessary for this patient to address the problems and achieve the goals outlined in this plan of care. This patient and/or patient's family/caregiver have been made aware of the objective findings from their evaluation. Discussion regarding their functional prognosis and plan of care were conducted, as well as risks and benefits of participation and non-participation in therapy. Patient will be discharged if goals are met, progress plateaus, if medical conditions warrant discharge, if patient is non-compliant or if patient referral source(s) requests. Katerine Butt PT, DPT [id number], PT, DPT December 24, 2022 Physical Therapy Number of Visits: 07/05 documented in this encounter [facility] 12-24-2022 Progress note Formatting of t his note is different from the original. Images from the original note were not included. [facility] [address] [employer] [facility] [address] PHYSICAL THERAPY NEURO EVALUATION Brief Summary Patient Name: Ros Jaimes Date of : 1950 Age: 72 y.o. Sex: female Physician: Salas Petersen, * Evaluation Date: 12/24/2022 Onset: 11/09/22 Follow up: not stated Treatment Order: eval and treat Medical Diagnosis: Therapy Diagnosis: decreased strength, impaired gait and balance Comments/Summary: Pt is a 72 yo female presenting to the clinic with a chief complaint of weakness and balance issues. She underwent a High Intensity Focused Ultrasound procedure on 11/09/22 for improving central tremors. Since then she states that she has been having weakness, especially in her R hip. Pt has been ambulating with single point cane, and states that she always feels like she veering to the R when walking. Skilled PT is needed to increase strength and improve balance and gait. Pt tolerated exercises well and was given handout for HEP. Plan is to see pt 1 time weekly for therapeutic and neuro re-ed exercise, manual therapy, and modalities as needed for symptom management. Recommendations: Frequency: 1-2 times weekly Duration: 12 visits Rehab potential: good for goals Length of Treatment: 30 min Prior Level of Function: Independent Comorbidities: has a past medical history of Fractures. Barriers to achieve goals: none identified Certified through: 03/24/23 Patient Goals: improve strength, gait, and balance Short Term Goals: 6 visits Short Term Goal 1: Pt will be compliant with HEP Short Term Goal 2: Pt will demonstrate ascending/descending therapy stairs with single UE use for improved stair negotiation. Alf Goals:12 visits Financial Health Counselor Goal 1: Pt will be independent with HEP Financial Health Counselor Goal 2: Pt will increase 30 STS score to at least 13 for improved endurance and sit to stand transfer Alf Goal 3: Pt will improve BLE MMT to 5/5 globally for improved stability Financial Health Counselor Goal 4: Pt will increase DGI score to at least 20 for improved ambulation Financial Health Counselor Goal 5: Pt will report that she no longer feels like she is veering to the R with ambulation for decreased risk of falls PHYSICAL IMPAIRMENT OF BODY STRUCTURES AND FUNCTIONS: Decreased Range of Motion, Decreased Flexibility Impaired Joint Mob., Decreased Muscular Strength, Disuse Atrophy, Capsular/Joint Dysfunction, Soft Tissue Dysfunction, Lack of Coordination, Abnormal Muscle Tone, Postural Dysfunction, Biomechanical Dysfunction, Abnormal Gait/Impaired Gait Pattern, and Impaired Balance ACTIVITY AND PARTICIPATION RESTRICTIONS: Self-care, Decreased Standing Tolerance, Decreased Walking Tolerance, Difficulty Standing/Squating from a Low Surface, Home Management, Household Ambulation, and Community Activity STABILITY: Stable: no significant concerns with progression/healing COMPLEXITY: low RECOMMENDED TREATMENT PLAN: Modalities: Heat/Cold, Ultrasound (08023, 52132), and Electrical Stimulation (63359) Therapeutic Exercise: PROM/AAROM/AROM (98020, 10254), Stretching (95166), Strengthening (31893), Proprioception (44300), Neuro Re-education (31301), Balance (95875, 79434, 52866), Coordination (66366, 15998), and Trunk Stabilization (37928) Patient Education/Functional Training (06467, 16666, 94261): Posture, Body Mechanics, Home Exercise Program, Gait Training (11938), Functional Activities, and Symptom Management Manual Techniques (81095): Soft Tissue Mobilization, Myofascial Release, Joint Mobilization, Muscle Energy Technique (91812), and Manual Distraction/Traction Physician Comments: I certify the need for these services, based on the Medical and Treatment diagnosis, furnished under this plan of treatment while under my care. Physician Signature (If not electronically signed): Date PHYSICAL THERAPY NEURO EVALUATION Fall Risk Assessment: Fall Risk: Yes History of Present Illness: High Intensity Focused Ultrasound for her tremors. She has had central tremors for about 32 years. 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 Her tremors have progressively gotten worse. She states that she has had the HIFU done for her R side. She cannot do the other side for a year. Pt reports that she has seen a lot of improvement. Pt reports that when she is out and about she uses the SPC, because she always wants to go to the R when walking. Procedure was done 11/09/22. Pt reports that she has weakness, more in R hip than anywhere. Pain: none Previous Level of Function: Independent Current Level of Function: impaired balance, difficulty with stair negotiation, difficulty with going from sit to stand. Behavior/Presentation: pleasant Personal Factors: none identified Comorbidities: has a past medical history of Fractures. Home Equipment/ Environment: none Mentation/ Communication: Orientated X4 Work Status/ Duties: retired Patient/Caregiver Goals: improve strength and balance Trunk Control/ Posture: wnl Sensation/Edema/Reflexes: no abnormalities Proprioception: impaired, body wants to veer to the right Basic Transfers: Independent Advanced Transfers: Independent Wheelchair Mobility: Independent Bed Mobility: Short-sitting to supine: Independent Supine to short-sitting: Independent Rolling: Independent Scooting: Independent Ambulation Status: Independent Assistance needed: no Device: Single point cane Range of Motion/Strength (*=painful) *WFL unless otherwise noted UE ROM R ROM L MMT R MMT L SHOULDER FLX (180) wfl wfl 5/5 globally 5/5 globally SHOULDER EXT (45) SHOULDER ABD (180) SHOULDER ER (90) ELBOW FLX (150) ELBOW EXT (0) SUPINATION (80) PRONTION (80) WRIST FLX (80) WRIST EXT (70) GROSS GRASP LE ROM R ROM L MMT R MMT L HIP FLX (120) wfl wfl 4+/5 4+/5 HIP EXT (30) HIP ABD (45) 5/5 4+/5 HIP ADD (45) 4/5 5/5 HIP IR (45) 5/5 5/5 HIP ER (45) 5/5 5/5 KNEE EXT (0) 5/5 4+/5 KNEE FLX (135) 5/5 5/5 ANKLE DF (20) 5/5 5/5 ANKLE PF (50) 5/5 5/5 ANKLE DAVID (15) 5/5 5/5 GREAT TOE EXT (70) GREAT TOE FLEX (45) Balance Test DGI: 06/16 30 TST: 30 reps Functional Outcome Tool Utilized: see balance tests Impression based on special tests or outcome measures: decreased strength, impaired gait and balance Assessment: Pt is a 72 yo female presenting to the clinic with a chief complaint of weakness and balance issues. She underwent a High Intensity Focused Ultrasound procedure on 11/09/22 for improving central tremors. Since then she states that she has been having weakness, especially in her R hip. Pt has been ambulating with single point cane, and states that she always feels like she veering to the R when walking. Skilled PT is needed to increase strength and improve balance and gait. Pt tolerated exercises well and was given handout for HEP. Plan is to see pt 1 time weekly for therapeutic and neuro re-ed exercise, manual therapy, and modalities as needed for symptom management. Plan for next session: -nustep -HS curls -bridges -clamshells -airex balance In my professional opinion, skilled therapy is medically necessary for this patient to address the problems and achieve the goals outlined in this plan of care. This patient and/or patient's family/caregiver have been made aware of the objective findings from their evaluation. Discussion regarding their functional prognosis and plan of care were conducted, as well as risks and benefits of participation and non-participation in therapy. Patient will be discharged if goals are met, progress plateaus, if medical conditions warrant discharge, if patient is non-compliant or if patient referral source(s) requests. Katerine Butt PT, DPT [id number], PT, DPT December 24, 2022 Physical Therapy Number of Visits: 07/05 [facility] 12-04-2022 History of Present illness Narrative Pt seen today in Movement disorders clinic for therapy screen. Presents with continued R sided weakness after HIFU procedure on 11/07/22 leading to impaired walking and balance. Will veer towards R when she walks, uses cane now. R hand tremor significantly improved with procedure. States this has helped her ADL/IADLs and is no longer having difficulty with these activities. Initially with some speech/cognitive difficulties but this has resolved. [place], enjoys gardening. Changes in gross functional mobility: impaired balance, difficulty walking Device/Equipment: straight cane Falls in past 6 months: none Current routine exercise program: my normal stuff. Walking the dogs, stairs, gardening Functional mobility observations: slowed gait speed, reduced R hip stability in stance, reduced step length, R lateral path deviation, R trunk lean, reliance on L side - observed with and without SPC Swallowing Questions: 1. Do you cough/choke and/or have persistent throat clearing with liquids/solids?: no 2. Do you ever have the sensation of food sticking in your throat?: no Voice questions: 1. Do people ask you to repeat yourself often? no 2. Do you speak less often with family, friends, neighbors because of your voice? no Cognitive Questions: Have you noticed a change in memory, attention (keeping your attention, completing 2 tasks at once, alternating your attention between task)? : no Have you noticed a change in organization skills, ability to plan/sequence/follow through with a task?: no Have you noticed a change and/or increase difficulty finding the rights words when communicating? : no Therapy needs identified: outpatient neuro PT Desired location: External location requested - [facility] (phone number provided for pt to contact) For external services: Hard copy of therapy orders provided to patient today Education provided: Quality of movement, HEP Adherence, Diagnosis specific education regarding role of therapy, Home Safety, Importance of attendance to therapy, Role of exercise and exercise guidelines, and Adaptive/Assistive equipment No charge for PT screen this date. Will continue to follow at Movement disorders clinic and assess for therapy related needs. Subjective Patient ID: Ros Jaimes is a 72 y.o. female. She presents for follow-up of her high-frequency ultrasound. She reports that she is doing really well with her right hand. She is able to eat with. She did develop some difficulty with walking and has been using a cane to get around. The following portions of the patient's history were reviewed and updated as appropriate: allergies, current medications, past family history, past medical history, past social history, past surgical history, and problem list. Review of Systems Constitutional: Positive for unexpected weight change. Respiratory: Positive for cough, shortness of breath and wheezing. Endocrine: Positive for heat intolerance. Musculoskeletal: Positive for gait problem. Allergic/Immunologic: Positive for environmental allergies. Neurological: Positive for tremors. All other systems reviewed and are negative. History reviewed. No pertinent family history. Social History Socioeconomic History Marital status: Tobacco Use Smoking status: Never Smokeless tobacco: Never Substance and Sexual Activity Alcohol use: Not Currently Drug use: Never Objective Physical Exam Constitutional: Appearance: Normal appearance. HENT: Head: Normocephalic and atraumatic. Eyes: Extraocular Movements: Extraocular movements intact. Pupils: Pupils are equal, round, and reactive to light. Cardiovascular: Pulses: Normal pulses. Pulmonary: Effort: Pulmonary effort is normal. Abdominal: General: Abdomen is flat. Musculoskeletal: General: Normal range of motion. Skin: General: Skin is warm and dry. Neurological: Mental Status: She is alert. Cranial Nerves: Cranial nerves 2-12 are intact. Sensory: Sensation is intact. Motor: Tremor present. Coordination: Coordination is intact. Gait: Gait is intact. Comments: She has tremor only of the left hand Spirals will be scanned of her right hand PACU Vitals 12/04/22 1317 BP: 134/78 Pulse: 77 Assessment/Plan: 72-year-old female with essential tremor status post unilateral VIM high-frequency ultrasound for treatment of her right hand. She is doing really well with the exception that she is a little difficulty with her balance she is using a cane but I will have her seen by physical therapy to get her in for some formal therapy to help her walking and balance. At this time she has taken herself off of the Topamax not interested in taking any further medications and at this time not interested in having the second side completed. Return to this clinic as needed. Diagnoses and all orders for this visit: Gait abnormality - Ambulatory Ref to [facility] (PT/OT/ST); Future There are no Patient Instructions on file for this visit. Dr. Salas Petersen MD Neurology Office Information gO MimsJennifer Ojeda MA Office# Salas Petersen MD documented in this encounter [facility] 11-07-2022 History of Present illness Narrative [facility] Physical Therapy Evaluation Today's Date 11/07/2022 Patient Name: Ros Jaimes Date of : 1950 Case Name: ET Post HIFU Functional Diagnosis: 1. Essential tremor Clinical Information: Subjective Patient accompanied by: spouse History of Present Illness Surgery Date: 11/07/2022 Days Post-Op: 0 Contemporary Medical History: Per medical records dated: 04/30/22 Contemporary Medical History: She is a patient of Dr. Up She has had essential tremor for over 30 years. She reports that numerous people in her family have been occluding her grandfather and her father. In the past she has taken Mysoline which caused her to have decreased breathing Topamax which caused her to be sleepy and she is currently on this medication but low dosage. She is also tried muscle relaxers and these were not helpful. She has no blood thinner no metal in her body she does have bilateral lens implants both hands shake the right is worse than the left and she wants the right hand done. 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 Subjective History: What do you know about HIFU? I've been looking into it since before you guys were able to do it. I've been interested in it for years now. Pt has done a lot of her own research. What is your goal for surgery? To not have tremors. I've lived with them for 30 some years now. It's become so difficult lately I can't really go out to eat or sew. Would like to be able to eat, cook, measure without spilling. If tremors affect both hands, which side would be your priority to improve (right or left)? R How do you feel off medications? Tremor is worse. Freezing of Gait or start hesitation? None noted. Reports she has slowed down but attributes that to age Do you have any problems swallowing? Occasional choking -reports this is d/t sinuses draining. Falls? Stumbles? No Vision? Pt has implants - just saw eye doctor last week - using drops for inflammation in L eye. Dizziness? OH? None reported Current functional difficulties due to tremors? Handwriting, cooking, sewing, eating Level of family support: lives with and has neighbor that is helpful Assistive devices at home: cane - occasionally uses, uses walking stick when walking dogs Pt trialed weighted cuff and utensils - not effective Pt denies balance or mobility concerns. States she uses walking stick mostly due to walking uneven terrain. States she previously had some numbness in her feet but resolved after getting shoe inserts and feels her arches are better. Previous Treatments: PT about 20 years ago - for tremor. Hand dominance: right Pain Scale Average Pain: 0/10 (occasionally has joint pain - hip/shoulder/knee) Personal Goals: See above Social Support: Rastafarian, social, or cultural considerations to be made aware of before starting treatment: No Home Environment Current Home Environment: Setup: multi-level house (Pt stays on main floor, 1 AVNI no railing) First floor: bedroom and full bath Red Flags: None Comments: Barriers to Care: None Fall risk screening Fallen 2 or more times in the last 12 months: No Injured as a result of a fall in the last 12 months: No Rastafarian, social, or cultural considerations to be made aware of before starting treatment: No Subjective History: Lives with , retired, has dogs. Patient reports tremor significantly limiting performance of tasks and quality of life prior to HIFU. Patient reports marked improvement in tremor on R and is smiling. P states that she is looking forward to sewing with her R hand. Patient presents with own walker that was her 's who had recent knee surgery. Patient states home accommodates use of walker. Pain Scale Average Pain: 0/10 Social Support: Rastafarian, social, or cultural considerations to be made aware of before starting treatment: No Red Flags: None Comments: Fall risk screening Fallen 2 or more times in the last 12 months: No Injured as a result of a fall in the last 12 months: No Rastafarian, social, or cultural considerations to be made aware of before starting treatment: No Evaluation Treatments: Physical Therapy Exercise Log - 11/07/22 1606 OTHER Notes Eval post HIFU only; follow up as needed Tremor Rating Scale Right Left Resting Tremor 1= Low amplitude tremor that is barely perceivable or is intermittent Postural Tremor 0= No Visible Tremor Pouring Water 0= No Visible Tremor Drinking Water 0= No Visible Tremor Using a Spoon 0= No Visible Tremor Finger to Nose 0= No Visible Tremor Spiral 0= No Visible Tremor Right Total 07/19 Physical Therapy Neuro Goals: Goals will be established if patient returns to OP neuro PT. Patient Education provided: Home safety and fall risk reduction strategies reviewed with patient. Patient verbalized understanding and handout provided. Training and education provided regarding use of 2 wheeled walker. Pt demonstrates understanding. Provided education regarding potential for transient and delayed onset of impairments s/p HIFU procedure including difficulty with gait/balance. Recommend pt seek physical therapy referral to help return to baseline mobility in the event they experience changes in their mobility different from their baseline that were not identified at the time of today's PT assessment. Pt aware to notify medical team of changes in status, questions/concerns, or for therapy referral needs. CPT Code 75316 Low 85197 Moderate 35472 High History 0 1-2 3+ Comorbidities: COPD, HTN, hx of neurological disease, and hyperlipidemia thyroid, Personal factors: NA x Examination of body systems (elements of body structures & functions, activity limitations, and/or participation restrictions) 1-2 elements 3+ elements 4+ elements See below clinical impression x Clinical Presentation Stable Evolving Unstable As evidenced by reports of fluctuating symptoms over time x Clinical Impression: Treatment Plan: Assessment: Based on PT re-assessment this date, pt appears to be at baseline mobility status. Pt does not present with specific PT needs requiring further follow-up at this time, however due to potential for delayed onset of impairments s/p HIFU procedure, pt may require additional PT treatment should they experience a change in mobility. At this time, pt's PT plan of care will be placed on hold for 30 days for continuation of therapy intervention as indicated. If no further follow up is needed within that time frame, this note is to serve as discharge note from outpatient neuro PT. Plan: Pt will contact medical team if they experience a change in mobility status so therapy can be set-up as indicated. Nurse navigator to call patient post-procedure to check in on status to assist with coordination of HH vs OP therapy as indicated. Earnestine Eduardo PT, DPT STATE LICENSE [id number] This co-signature is to electronically certify that the above named patient, who is under my care, requires skilled therapy services as described in the above treatment plan. I further certify that the services outlined in this plan are skilled and medically necessary. I have reviewed this plan of care for rehabilitation services and recommend that these services continue from 11/07/2022 to 12/08/2022. documented in this encounter [facility] 11-07-2022 History of Present illness Narrative Images from the original note were not included. Ros Laird Theodore [id number] OPERATIVE REPORT SURGEON CHERYL BECERRIL MD, FAANS CENTRIFUGAL OPERATOR ODALIS Cooper Due to the complexity of the case and no qualified resident available, ODALIS assistance was required. PREOP DIAGNOSIS Essential tremor. POSTOP DIAGNOSIS Essential tremor. OPERATIVE PROCEDURE Left sided magnetic resonance guided high intensity focused ultrasound thalamotomy using the [employer] system OPERATIVE INDICATIONS This is 72 y.o. female who presents with a several-year history of tremor primarily involving the right greater than left upper extremity. Multiple modalities of medical treatment did not result in effective control of tremor. The patient found significant disability with regard to activities of daily living. As a result, after the patient's case was presented at the Multidisciplinary Movement Disorders Conference, the consensus recommendation was to offer the patient magnetic resonance guided high intensity focused ultrasound thalamotomy for control of tremor. Patient had undergone preoperative volumetric bone cut CT scan to ensure that they met criteria for minimum skull density ratio in order to ensure that they were good candidates for this treatment. A detailed discussion of the risks, benefits, and alternatives was undertaken in the preoperative setting. OPERATIVE PROCEDURE DETAILS Patient was initially evaluated in the preprocedural area in our 3T MR imaging facility. After appropriate identification, an IV was placed and hep-locked. Next, all of the patient's hair was clipped and then a shaving razor was used to shave the head with shaving cream. The scalp was then cleansed with a moistened towel. Chlorhexidine was then used to prep the scalp in the area of planned frame placement. Next, a scalp block was performed using a 50:50 mix of lidocaine and bupivacaine as follows: the supraorbital, supratrochlear, as well as the greater and lesser occipital nerves, were blocked using this mixture. Next, the CRW frame insertion points were also blocked using the same local anesthetic mixture The CRW frame was screwed into the patient's frontal and occipital regions. The frame was noted to be centered right over the glabella. The frame was parallel to the orbital meatal line. Patient was then wheeled into the MRI suite. The membrane was then placed over the patient's head to ensure that it was positioned right above the CRW pins. The membrane was then attached to the transducer and was filled with degassed water. Once the [employer] system parameters were noted to be optimized following this step, patient was positioned for MR image acquisition. T1 (MPRAGE) volumetric scan was obtained in the sagittal plane and anterior commissure, posterior commissure and midline were identified. The target for the thalamotomy was then initially made 13 mm lateral, 7 mm anterior and 1.5 mm superior to the level of the posterior commissure along the AC PC plane. The transducer was then moved in the appropriate medial lateral, anterior posterior and superior inferior direction to ensure target of interest would be optimally and accurately covered by the ultrasound field. The patient's preoperative volumetric bone cut CT was then merged to this T1 volumetric scan. The merge was noted to be of optimal quality. Next, calcifications and membrane folds were marked as no pass regions. Movement thresholds were also noted to be within acceptable range. Movement detection fiducials were then marked out in axial, sagittal, and coronal planes. Sonication was aligned to the target in axial plane initially followed by coronal plane. Additional sonication was used to verify targeting. At this point, the patient was evaluated by Dr. Petersen who noted an initial good tremor response using sample drawing of spirals, as well as straight lines. Next, sequential sonications were performed to create the permanent thalamotomy lesion. Once again, this was evaluated by Dr. Petersen who noted a good tremor response without side effects. A final evaluation was performed by Dr. Petersen. The patient continued to have a good response with significant improvement of tremor without side effect. Additional T2 sequences were performed and this showed accurate placement of the thalamotomy. At this point, the patient was disconnected from the transducer after the membrane was drained. The membrane was then removed and then the patient was removed from the CRW frame. The patient was then transferred to the recovery area and additional testing was performed confirming good therapeutic response. Patient was evaluated by physical therapy and was discharged to home with a walker. COMPLICATIONS: There were no immediate intraprocedural complications noted. Cheryl Becerril MD, FAANS documented in this encounter [facility] 10-03-2022 History of Present illness Narrative Questions for the Staff to Ask Review of Systems Ros Laird Dralfred 10/03/22 General Weight Gain: NO Weight Loss: NO Fatigue: NO Fever: NO Chills: NO Night Sweats: NO Insomnia: NO Excessive Sleeping: NO Respiratory Cough: YES Shortness of Breath: YES Wheezing: YES Excessive Snoring: NO Coughing up Blood: NO Endocrine Heat Intolerance: NO Cold Intolerance: YES Excessive Thirst: NO Excessive Hunger: NO Eyes Blurred Vision: NO Double Vision: NO Light Sensitivity: YES Eye Pain: NO Musculoskeletal Muscle Aches/Pain: YES Joint Pain/Swelling: NO Muscle Cramps: YES Muscle Weakness: NO Neck Pain: NO Back Pain: NO Neurologic Difficulty Walking/Falls: NO Headache/Migraine: NO Dizziness/Vertigo: NO Fainting: NO Difficulty with Speech: NO Weakness: NO Tingling/Numbness: NO Tremors: YES Memory Problems: NO Seizures: NO Difficulty Swallowing: NO Altered Taste: NO Cardiovascular Chest Pain: NO Shortness of Breath: NO Palpitations: NO Gastrointestinal Nausea/Vomiting: NO Constipation: NO Diarrhea: NO Bloody Stools: NO Psychiatric/Cognitive Depression: NO Anxiety: NO Hallucinations: NO Problems Concentrating: NO Genitourinary Frequent Urination: NO Incontinence: YES Blood in Urine: NO Urinary Infections: NO Change in Sex Drive: NO Ear/Nose/Throat Hearing Loss: NO Earache: NO Ringing in Ears: NO Facial Pain: NO Chronic Congestion: NO Immunologic Seasonal Allergies: YES Hives and/or Rashes: NO Lexy Mc RN 10/03/22 Images from the original note were not included. Dear Dr. Barbra Viera, RUTH Thank you for referring Ros Jaimes for neurosurgical consultation today. I have attached a copy of my consultation note below for your review. As you know, she is a pleasant 71 y.o. year old female who presents with a chief complaint of Essential Tremor. The patient was first diagnosed 30 years ago. Tremor initially began in the hands. The patient was initially managed on Topamax. However, over the course of the last year, the patient has been suffering from increased tremors. Anxiety and fatigue make the tremor worse. At this point, she has trouble with sewing, eating, as well as other activities of daily living. She has therefore significant trouble with multiple activities related to daily living. So I have this likely populated stuff GHI. The patient was evaluated by our movement disorders neurologist, Dr. Salas Petersen, as to whether they would benefit from HIFU surgery. In addition, a detailed presurgical evaluation was performed by physical therapy and occupational therapy. The patient's case was presented at our multidisciplinary movement disorders conference, where we reviewed the above presurgical testing as follows: Tremor Rating Scale Score: R: ; L; Physical Therapy Conclusions: Supine tolerance good with hook lying position. Occupational Therapy Conclusions: no issues Other concerns regarding surgical candidacy: has B lens implants, will need to discuss with [employer] techs. PAST MEDICAL HISTORY has no past medical history on file. PAST SURGICAL HISTORY has no past surgical history on file. MEDICATIONS has a current medication list which includes the following prescription(s): atorvastatin, cholecalciferol (vitamin d3), hydrochlorothiazide, levothyroxine, nifedipine, omeprazole, and topiramate. FAMILY HISTORY family history is not on file. SOCIAL HISTORY reports that she has never smoked. She has never used smokeless tobacco. She reports that she does not currently use alcohol. She reports that she does not use drugs. ALLERGIES Allergies: Patient has no known allergies. ROS I have reviewed the review of systems as obtained by my staff PHYSICAL EXAMINATION Alert, Awake Speech fluent Head: Normocephalic, Atraumatic Pupils equal bilaterally Extra-Ocular Muscles Intact Face symmetric Tongue Midline Visual Ware full to confrontation Hears finger rub bilaterally Shoulder shrug intact bilaterally No significant rest tremor Significant kinetic (action and postural tremor involving the right greater than left upper extremity) No pronator drift Normal muscle tone and bulk 5/5 bilaterally in Deltoids, Biceps, Triceps, Rotor Blade Installer 5/5 bilaterally in lower extremities Gait: Intact DATA REVIEW I reviewed the imaging as described above in the HPI IMPRESSION/PLAN: Essential tremor involving the right greater than left upper extremity. He finds significant disability related to her tremor and she has failed multiple modalities of medical treatment. Therefore, we discussed her case at our recent movement disorder surgery conference and the patient was felt to be a good candidate for high intensity focused ultrasound (HIFU) thalamotomy. I discussed this procedure in detail with her during today's visit. Discussion of the Nature and Risks of HIFU: Surgical treatment would take the form of left high intensity focused ultrasound thalamotomy (VIM-Ventralis Intermedius) for control of right sided tremor I explained to the patient/family the nature of surgical treatment. I discussed the usual hospital and recovery course associated with this type of operation. I also discussed in detail the risks associated with this operation. We discussed that this is an outpatient procedure in general. Patient would arrived on the day of the surgery. The patient's head would be shaved on the day of the surgery. The patient would then be placed in a CRW frame and then the ultrasound thalamotomy would be performed in our 3 [facility] with near real-time monitoring of thalamotomy lesion creation and intraprocedural testing to ensure an appropriate therapeutic response without associated side effects. Following the procedure, the patient would have the frame removed and would be given a wheeled walker for assistance with any gait instability which in general is temporary. The patient will also be given a Decadron taper following the procedure and will be discharged home. The risks of the procedure include but are not limited to: Failure of improvement of tremor (patient understands that they may be a candidate for deep brain stimulation surgery if they were to fail ultrasound thalamotomy), bleeding, stroke, paralysis, , speech dysfunction, gait instability, as well as medical complications during the postoperative period. At this time, the patient wishes to proceed with treatment, which is tentatively scheduled for November 07, 2022. If I could be of further assistance, please feel free to contact me. Thank you for allowing me to participate in her care. I will keep you apprised of her progress. Cheryl Becerril MD, FAANS documented in this encounter [facility] 09-22-2022 Miscellaneous Notes Images from the original note were not included. [facility] [address] [employer] [facility] [id number] Physical Therapy Daily Note Patient Name: Ros Jaimes 1950 Physician: Salas Petersen, * Medical Dx: Subjective: Pain Assessment Pain Rating 1 (on scale of 0 - 10): 0/10 Pt arrived with no pain. Reports she stopped using her cane about 3 days ago. Denies changes since last session. Reports compliance with HEP. Objective: Reassessment Visit: No PT Rationale for Treatment PT Rationale For Treatment: Increase ROM, Increase Strength, Increase Soft tissue mobility, Increase Flexibility, Improve balance, Increase Proprioception, Improve gait PT Activities PT Activity1: NuStep L1x5' (seat 6, UE 8) PT Activity2: LAQ 10x3 PT Activity3: Standing HS curls x10 MICHAEL PT Activity4: Standing 3 way hip x10 MICHAEL PT Activity5: Standing Alt August x10 MICHAEL PT Activity6: Fwd 6 step ups R/L lead x10 PT Activity8: Bridges attempted but dc 2/2 LE cramping PT Activity9: Clamshells attempted but dc 2/2 unable to lie on her side Assessment: Goals and HEP reviewed, pt verbalized understanding and agrees. Has correct return demonstration with HEP. Pt instructed to not push through increased pain and rest as needed. Required mn vc's for correct technique and maintaining good form throughout tx. Attempted bridges and clamshells but d/c 2/2 increased leg cramping and unable to tolerate. Required short rest breaks 2/2 fatigue and SOB. Pt viviane tx well, reports no pain upon exit. Plan: Continue per PT POC. September Ola, SPRAY DYER January 01, 2023 Physical Therapy Number of Visits: 08/05 Per Insurance: medicare documented in this encounter [facility] 09-22-2022 Miscellaneous Notes Images from the original note were not included. [facility] [id number] [employer] [facility] [id number] Physical Therapy Daily Note Patient Name: Ros Jaimes 1950 Physician: Salas Petersen, * Medical Dx: Subjective: Pain Assessment Pain Rating 1 (on scale of 0 - 10): 2/10 Pain Location 1: L thumb Pt arrives with 2/10 pain in L thumb. Reports she was out pulling weeds yesterday. Reports compliance with HEP. Objective: Reassessment Visit: No PT Rationale for Treatment PT Rationale For Treatment: Increase ROM, Increase Strength, Increase Soft tissue mobility, Increase Flexibility, Improve balance, Increase Proprioception, Improve gait PT Activities PT Activity1: NuStep L3x5' (seat 6, UE 8) PT Activity3: Airex: PT Activity4: Standing 3 way hip x15 MICHAEL PT Activity5: Standing Alt March x15 MICHAEL PT Activity6: Standing HS curls x15 MICHAEL PT Activity7: Fwd 6 step ups R/L lead x10 MICHAEL Assessment: Pt viviane tx well. Increased resistance on NuStep. Pt required mn vc's for correct technique and maintaining good form throughout tx. Increased all standing ther ex reps from 12 to 15 with good tolerance. All standing ther ex performed on Airex with B UE support on // bars. Reports no change in pain upon exit. Plan: Continue per PT POC. September Ola, SPRAY DYER January 29, 2023 Physical Therapy Number of Visits: 11/02 Per Insurance: medicare documented in this encounter [facility] 07-11-2022 Telephone encounter Note Will do! [facility] 07-11-2022 Miscellaneous Notes Will do! Patient is now being followed by dr. Petersen, please forward this to her documented in this encounter [facility] 07-11-2022 Telephone encounter Note Patient is now being followed by dr. Petersen, please forward this to her [facility] 06-08-2022 History of Present illness Narrative HIFU Candidate O: 35 C: 30 P: 55 Does the patient have a walker: NO Support:[employer] What does he patient do for a living: retired What hobbies does the patient have: sewing What side does the patient want done: Right What goal does the patient have for this to be done: ADL's HIFU Protocol You will receive a few phone calls from different departments for the HIFU process, please use this as your check off record to keep track of your progress. HIFU Contact List: Dr. Salas Petersen's/ Dr. Jeronimo Guerrero Office Og Ojeda MA O: F: Nurse Navigator Imtiaz Peña [phone] HIFU Check Off List OFF MEDICATION Physical Therapy Occupational Therapy Neurosurgeon Post-Op (Surgeon) Post-Op Appointment with Neurologist (45 minutes) If you have any questions don't hesitate to contact Dr. Petersen's Office Og Ojeda MA [phone] OR Imtiaz Peña Nurse Navigator [phone]. *Once your appointments are set up and you need to reschedule please contact Dr. Petersen's clinic to do so.* documented in this encounter [facility] 12-20-2021 History of Present illness Narrative Images from the original note were not included. Neurology Consultation Note Frank Up MD [facility] - Neurology [address] [place] [address] (office) / [phone] (fax) Patient Name: Ros Jaimes : 1950 MR #: [id number] Date of Neurology Consult: 12/20/21 Chief Complaint: Tremors Assessment and Plan: Ros Jaimes was seen in consultation at the request of RUTH Rebollar with the diagnosis of R25.1 (ICD-10-CM) - Tremor The referring provider's note indicates that the patient is being referred specifically for high intensity focused ultrasound for her tremors . 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 Unfortunately, she could not remember all the medications that she has tried but she tells me that topiramate has been beneficial her at a low dose of 50 mg once daily without side effects. I have recommended increasing Topamax to 50 mg twice a day to see if she can tolerate it and if she gets more benefit from a therapeutic dose. If this is the case, the medication could be gradually increased to 100 mg twice a day as long as she tolerates it. My office staff is trying to obtain a list of the medications that she may have tried for her tremor. We did discuss that if she has not tried at least 2 or 3 medications, she would not be a candidate for high-frequency MRI guided focused ultrasound thalamotomy. If ultimately this is what is needed, she will need to be referred to the movement disorder clinic, to Dr. Petersen. I appreciate the opportunity to evaluate Ros Jaimes. She will schedule to see Nataliya Ocasio CNP in follow-up in about 6 weeks to see how she does with Topamax at a higher dose Frank Up MD This note was created with voice recognition software. Grammatical, syntax and spelling errors may be inevitable. The intended meaning may be extrapolated by contextual derivation. History of Present Illness: Ros Jaimes is a 71 y.o. female with has no past medical history on file. Ros Jaimes was seen in consultation today at the request of Dr. Viera with the specific question of Tremors Tremor onset: 30 years ago Onset was gradual Location of tremor: hands, head and neck Asymmetrical, R>L Kinetic Aggravated by stress, anxiety Improved by rest Limitations: can't sew, cooking, trouble holding utensils for eating, buttoning Family history: PGM, Father, P aunts and uncles, brother. Son is starting to have tremor Medication tried: Rx that caused breathing issues) muscle relaxers, Topiramate Past Medical, Surgical and Social Hx and current medications reviewed with the patient as noted in the chart Physical Examination: BP (!) 165/69 (BP Location: Left arm, Patient Position: Sitting, BP Cuff Size: Adult) Pulse 88 Ht 5' 5 Wt 73.5 kg (162 lb) BMI 26.96 kg/m General General appearance: well groomed, well developed, in no acute distress Non-dilated fundoscopic exam: no evidence of papilledema in either eye Carotid auscultation: normal bilaterally Heart auscultation: Regular rate and rhythm, distant heart sounds. Leg edema: No edema in either lower extremity Mental Status Alertness, attention span & concentration: Alert and oriented to place person and time, normal Language: no aphasia expressive or receptive, no anomia Memory: remote and recent, concentration normal Fund of knowledge: normal Cranial Nerves Visual ware and extraocular movements full, facial sensation and strength normal; hears normally; palate and tongue midline, shoulder shrug normal, unless noted otherwise II - Visual ware: III, IV, : V - Facial sensation: VII - Face symmetry & mobility: VIII - Hearing: IX, X - Palate: XI - Shoulder shrug: XII - Tongue protrusion: Station/gait/Cerebellar Gait, tone, [id number], rapid alternating movements normal unless noted otherwise Gait & station: Walks with a cane, but is able to ambulate without it Tone: Abnormal movements: none observed Finger-nose & rapid alternating movements: Tremor: Kinetic tremor affecting the head, neck as well as both upper extremities, right greater than left. The tremor is strictly kinetic. Extrapyramidal signs: none Atrophy: none Romberg test: Deferred Muscle Strength All muscles listed MRC 5, unless noted otherwise RIGHT LEFT Comment Shoulder abduction Elbow flexion Elbow extension Finger abduction Finger flexion Hip flexion Knee extension Ankle dorsiflexion MRC (Medical Research Burns) muscle power scale: 5 normal 4 active movement against gravity and resistance 3 active movement against gravity 2 active movement with gravity eliminated 1 flicker or trace of contraction 0 no contraction Muscle Stretch Reflexes All muscle stretch reflexes 2, unless noted otherwise MSR RIGHT LEFT Biceps Triceps Brachiorad. Patellar Achilles 0 0 Babinski - - Reflex gradin absent 1 decreased 2 normal 3 increased 4 clonus Sensory Vibration, temperature and light touch normal in upper and lower extremities, unless noted otherwise Upper Extremities Modality RIGHT LEFT Vibration Temperature Light touch Pin prick Lower Extremities Modality RIGHT LEFT Vibration Temperature Light touch Pin prick Reviewed: I independently and personally reviewed labs, Neurology-related imaging and tests pertinent to my specialty that were available at the time of the visit. Labs: No results found for: WBC, HGB, HCT, PLT, CHOL, TRIG, HDL, LDLCALC, ALT, AST, NA, K, CL, CREATININE, BUN, BICARB, TSH, INR, GLUF, HGBA1C, AMMONIA Labs from the PCP reviewed: Date: None Imaging: None documented in this encounter [facility] Diagnosis Familial tremor- Primary Essential and other specified forms of tremor [facility] Diagnosis Decreased activities of daily living (ADL) Impaired instrumental activities of daily living (IADL) [facility] Diagnosis Familial tremor- Primary Essential and other specified forms of tremor [facility]* Diagnosis Benign essential tremor- Primary Essential and other specified forms of tremor Familial tremor Essential and other specified forms of tremor [facility]* Diagnosis Essential tremor [facility]* Diagnosis Gait abnormality- Primary Abnormality of gait [facility]* Diagnosis Benign essential tremor- Primary Essential and other specified forms of tremor [facility] Summary Purpose Family History No Family History Records FoundNo Family History Records FoundNo Family History Records FoundNo Family History Records FoundNo Family History Records FoundNo Family History Records Found Advance Directives No Advanced Directives Records FoundNo Advanced Directives Records FoundNo Advanced Directives Records FoundNo Advanced Directives Records FoundNo Advanced Directives Records FoundNo Advanced Directives Records Found Reason for Referral Specialty Diagnoses / Procedures Referred By Contac t Referred To Contact Neurology Diagnoses Familial tremor Frank Up MD [address] [facility] [address] [place] [address] Salas Petersen MD [address] [facility] [address] [place] [address] Referral ID Status Reason Start Date Expiration Date Visits Requested Visits Authorized [id number] Authorized Specialty Services Required/Pat ient's Best Interest 01/29/2022 01/29/2023 1 1 Specialty Diagnoses / Procedures Referred By Contac t Referred To Contact Neurosurgery Diagnoses Familial tremor Salas Petersen MD [address] [facility] [address] [place] [address] Cheryl Becerril MD [address] [facility] [address] [place] [address] Referral ID Status Reason Start Date Expiration Date V isits Requested Visits Authorized [id number] Authorized 08/03/2022 08/03/2023 1 1 Specialty Diagnoses / Procedures Referred By Contac t Referred To Contact Rehabilitation Diagnoses Gait abnormality Salas Petersen MD [address] [facility] [address] [place] [id number] Referral ID Status Reason Start Date Expiration Date Visits Requested Visits Authorized [id number] Authorized Specialty Services Required/Pat ient's Best Interest 12/04/2022 12/04/2023 1 1 Additional Source Comments INFORMATION SOURCE (unrecogn ized section and content) DATE CREATED AUTHOR AUTHOR'S ORGANIZ ATION 06/14/2021 [facility] DATE CREATED AUTHOR AUTHOR'S ORGANIZ ATION 12/18/2022 [facility] DATE CREATED AUTHOR AUTHOR'S ORGANIZ ATION 02/12/2023 [facility] DATE CREATED AUTHOR AUTHOR'S ORGANIZ ATION 03/08/2023 [facility] DATE CREATED AUTHOR AUTHOR'S ORGANIZ ATION 03/30/2023 [facility] Reason for Visit (unrecogniz ed section and content) Specialty Diagnoses / Procedures Referred By Contac t Referred To Contact Physical Therapy Diagnoses Weakness of right side of body Procedures PT EVAL PAT, DEV PLAN OF CARE, IMPLEMENT Salas Petersen MD [address] [facility] [address] [place] [address] Katerine Butt, PT, DPT Referral ID Status Reason Start Date Expiration Date V isits Requested Visits Authorized [id number] Authorized 11/22/2022 02/27/2023 12 12 Reason Onset Date Comments Outpatient Physical Therapy 01/29/2023 Reason Onset Date Comments Outpatient Physical Therapy 01/22/2023 Reason Onset Date Comments Outpatient Physical Therapy 01/01/2023 Reason Comments Tremors Specialty Diagnoses / Procedures Referred By Contac t Referred To Contact Rehabilitation Diagnoses Familial tremor Salas Petersen MD [address] [facility] [address] [place] [address] Referral ID Status Reason Start Date Expiration Date V isits Requested Visits Authorized [id number] Pending Review 04/30/2022 04/30/2023 1 199 Specialty Diagnoses / Procedures Referred By Contac t Referred To Contact Neurology Diagnoses Tremor Barbra Viera, RUTH [address] [place] [address] [facility] Referral ID Status Reason Start Date Expiration Date V isits Requested Visits Authorized [id number] Pending Review 08/30/2021 08/30/2022 1 1 Reason Comments Neuro Occupational Therapy Specialty Diagnoses / Procedures Referred By Contac t Referred To Contact Rehabilitation Diagnoses Familial tremor Salas Petersen MD [address] [facility] [address] [place] [address] [facility] [address] [place] [address] Referral ID Status Reason Start Date Expiration Date V isits Requested Visits Authorized [id number] Authorized 04/30/2022 04/30/2023 1 199 Reason Comments Medication Refill Specialty Diagnoses / Procedures Referred By Contac t Referred To Contact Neurosurgery Diagnoses Familial tremor Salas Petersen MD [address] [facility] [address] [place] [address] Cheryl Becerril MD [address] [facility] [address] [place] [address] Referral ID Status Reason Start Date Expiration Date Visits Re quested Visits Authorized [id number] Closed 08/03/2022 08/03/2023 1 1 Reason Comments Follow-up Post-HIFU Shortness of Breath Patient wheezing - B ronchitis and asthma Reason Onset Date Comments Outpatient Physical Therapy 12/24/2022 Referral ID Status Reason Start Date Expiration Date V isits Requested Visits Authorized [id number] Authorized 11/22/2022 02/27/2023 11 11 Reason Comments Follow-up Care Teams (unrecognized sec tion and content) Cruise Consultant Relationship Specialty Start Date End Date Barbra Viera FNP [address] [place] [address] PCP - General Nurse Practitioner 10/10/21 Cruise Consultant Relationship Specialty Start Date End Date Barrba Viera FNP [address] [place] [address] PCP - General Nurse Practitioner 10/10/21 Cruise Consultant Relationship Specialty Start Date End Date Barbra Viera FNP [address] [place] [address] PCP - General Nurse Practitioner 10/10/21 Cruise Consultant Relationship Specialty Start Date End Date Barbra Viera FNP [address] [place] [address] PCP - General Nurse Practitioner 10/10/21 Cruise Consultant Relationship Specialty Start Date End Date Barbra Viera FNP [address] [place] [address] PCP - General Nurse Practitioner 10/10/21 Cruise Consultant Relationship Specialty Start Date End Date Barbra Viera FNP [address] [place] [address] PCP - General Nurse Practitioner 10/10/21 Cruise Consultant Relationship Specialty Start Date End Date Barbra Viera FNP [address] [place] [address] PCP - General Nurse Practitioner 10/10/21 Cruise Consultant Relationship Specialty Start Date End Date Barbra Viera FNP [address] [place] [address] PCP - General Nurse Practitioner 10/10/21 Cruise Consultant Relationship Specialty Start Date End Date Nona Griffin MD PCP - General 02/01/16 Art, Katerine, PT, DPT Physical Therapist Physical Therapy 12/24/22 Cruise Consultant Relationship Specialty Start Date End Date Nona Griffin MD PCP - [facility] 02/01/16 Art, Katerine, PT, DPT Physical Therapist Physical Therapy 12/24/22 Cruise Consultant Relationship Specialty Start Date End Date Nona Griffin MD PCP - [facility] 02/01/16 Art, Katerine, PT, DPT Physical Therapist Physical Therapy 12/24/22 Cruise Consultant Relationship Specialty Start Date End Date Nona Griffin MD PCP - [facility] 02/01/16 Art, Katerine, PT, DPT Physical Therapist Physical Therapy 12/24/22 Cruise Consultant Relationship Specialty Start Date End Date Nona Griffin MD PCP - [facility] 02/01/16 Art, Kateirne, PT, DPT Physical Therapist Physical Therapy 12/24/22 Cruise Consultant Relationship Specialty Start Date End Date Barbra Viera FNP [address] [place] [address] [address] [place] [address] PCP - General Nurse Practitioner 10/10/21 FOR RECORDS PERTAINING TO PATIENTS WHO ARE OR HAVE BEEN ENROLLED IN A CHEMICAL DEPENDENCY/SUBSTANCEABUSE PROGRAM, SOME INFORMATION MAY BE OMITTED. This clinical summary was aggregated from multiple sources. Caution should be exercised in using it in the provision of clinical care. This summary normalizes information from multiple sources, and as a consequence, information in this document may materially change the coding, format and clinical context of patient data. In addition, data may be omitted in some cases. CLINICAL DECISIONS SHOULD BE BASED ON THE PRIMARY CLINICAL RECORDS. [employer] [facility]. provides no warranty or guarantee of the accuracy or completeness of information in this document.
--- NOTE | 2023-09-04 05:48 | PCM.PSN.6M ---
PSN 6 Minute Walk Test 6 Minute Walk Test 6 Minute Walk Test: 6 Minute Walk Test PSN:6-Minute Walk Test Start: 09/02/23 12:51 Freq: Status: Active Protocol: RESP.6MINW Document 09/02/23 12:51 LORNAJOSECECI (Rec: 09/02/23 12:55 LORNAJOSECECI [id number]) 6 Minute Walk Test Date Performed 09/02/23 Time Performed 12:30 Height 5 ft 5 in Weight: 72.575 kg Weight in Pounds 160.[address]: Rafael Pan Assistive device used: None Pre-test Oxygen Delivery Method Room Air Pulse Ox 91 Pulse Rate (60-100) 84 Dyspnea Nathan Scale (0-10) 0 Exertion Nathan Scale (6-20) 6 1st minute Oxygen Delivery Method Room Air Pulse Ox 91 Pulse Rate (60-100) 87 2nd minute Oxygen Delivery Method Room Air Pulse Ox 86 Pulse Rate (60-100) 105 H Dyspnea Nathan Scale (0-10) 5 3rd minute Oxygen Flow Rate (L/min) 2 Oxygen Delivery Method Nasal Cannula Pulse Ox 92 Pulse Rate (60-100) 99 4th minute Oxygen Flow Rate (L/min) 2 Oxygen Delivery Method Nasal Cannula Pulse Ox 91 Pulse Rate (60-100) 100 5th minute Oxygen Flow Rate (L/min) 2 Oxygen Delivery Method Nasal Cannula Pulse Ox 88 Pulse Rate (60-100) 106 H 6th minute Oxygen Flow Rate (L/min) 3 Oxygen Delivery Method Nasal Cannula Pulse Ox 92 Pulse Rate (60-100) 108 H Dyspnea Nathan Scale (0-10) 4 Exertion Nathan Scale (6-20) 13 Post-test Oxygen Flow Rate (L/min) 3 Oxygen Delivery Method Nasal Cannula Pulse Ox 96 Pulse Rate (60-100) 90 Full Laps Walked 14 Partial Lap, Number of Tiles Walked 36 Total Distance Walked (ft) 862 Interpretation Interpretation: The patient was noted to be 91% on room air at rest, but desaturated to 86% within 2 minutes of ambulation. The patient was placed on 2 L nasal cannula with improvement to 94% and ultimately required 3 L/min to maintain adequate saturations throughout testing. In total, the patient traveled 862 feet over the course of 6 minutes with no assistive devices and 2 breaks. The patient did not have significant tachycardia during testing. These findings are consistent with a respiratory limitation exercise tolerance. Recommendations Recommendations: The patient requires no supplemental oxygen at rest, but should be using 3 L/min with any exertion.
== END | disposition home or self-care (01) ==
LOC: CVS 12:16
PROVIDERS: PCP Nurse Practitioner Family; Referring Provider Internal Medicine Critical Care Medicine; Visit Provider Internal Medicine Critical Care Medicine
DX: R06.09 Other forms of dyspnea (principal)
CPT/HCPCS: 93306; 94618

== ENCOUNTER → 2024-10-22 | Outpatient (CLI) | payer MEDICARE, OTHER, SELFPAY | END | disposition home or self-care (01) | PROVIDERS: PCP Nurse Practitioner Family; Referring Provider Nurse Practitioner Acute Care; Visit Provider Nurse Practitioner Acute Care | DX: J44.89 Other specified chronic obstructive pulmonary disease (principal) | CPT/HCPCS: 94060; 94726; 94729 ==

== ENCOUNTER → 2024-10-27 | Outpatient (CLI) | payer MEDICARE, OTHER, SELFPAY ==
[2024-10-27 12:51] VITALS: PULSE 79; PULSE 80; PULSE 83; PULSE 90; PULSE 94; PULSE 96; PULSE 98; O2SAT 85; O2SAT 88; O2SAT 89; O2SAT 91; O2SAT 92; O2SAT 95
--- NOTE | 2024-10-27 12:54 | CPS ---
Patient states she wears 3 lpm oxygen at home PRN. Patient did not come in on any oxygen, sitting in wheelchair.
--- NOTE | 2024-10-30 12:07 | WT_ITS ---
PSN 6 Minute Walk Test 6 Minute Walk Test 6 Minute Walk Test: 6 Minute Walk Test PSN:6-Minute Walk Test Start: 10/27/24 12:51 Freq: Status: Active Protocol: [id number] Document 10/27/24 12:51 DONCECI (Rec: 10/27/24 12:55 DONCECI [id number]) 6 Minute Walk Test Date Performed 10/27/24 Time Performed 12:30 Height 5 ft 5 in Weight: 173 lb Weight in Pounds 173.[address]: Pat Reddy [employer] Assistive device Cane used: Pre-test Oxygen Delivery Room Air Method Pulse Ox (%) 92 Pulse Rate (60-100 79 beats/min) Dyspnea Nathan Scale ( 0 0-10) Exertion Nathan Scale 6 (6-20) 1st minute Oxygen Delivery Room Air Method Pulse Ox (%) 85 Pulse Rate (60-100 96 beats/min) 2nd minute Oxygen Flow Rate (L/ 3 min) (L/min) Oxygen Delivery Nasal Cannula Method Pulse Ox (%) 92 Pulse Rate (60-100 83 beats/min) 3rd minute Oxygen Flow Rate (L/ 3 min) (L/min) Oxygen Delivery Nasal Cannula Method Pulse Ox (%) 91 Pulse Rate (60-100 90 beats/min) 4th minute Oxygen Flow Rate (L/ 3 min) (L/min) Oxygen Delivery Nasal Cannula Method Pulse Ox (%) 89 Pulse Rate (60-100 94 beats/min) 5th minute Oxygen Flow Rate (L/ 3 min) (L/min) Oxygen Delivery Nasal Cannula Method Pulse Ox (%) 88 Pulse Rate (60-100 98 beats/min) 6th minute Oxygen Flow Rate (L/ 4 min) (L/min) Oxygen Delivery Nasal Cannula Method Pulse Ox (%) 92 Pulse Rate (60-100 94 beats/min) Dyspnea Nathan Scale ( 4 0-10) Exertion Nathan Scale 13 (6-20) Post-test Oxygen Flow Rate (L/ 4 min) (L/min) Oxygen Delivery Nasal Cannula Method Pulse Ox (%) 95 Pulse Rate (60-100 80 beats/min) Full Laps Walked 14 Partial Lap, Number 0 of Tiles Walked Total Distance 826 Walked (ft) 10/27/24 12:54 Cardiopulmonary Services by Sandra Tovar Patient states she wears 3 lpm oxygen at home PRN. Patient did not come in on any oxygen, sitting in wheelchair. Initialized on 10/27/24 12:54 - END OF NOTE Interpretation Interpretation: The patient ambulated 826 feet over the course of 6 minutes beginning on room air with the use of a cane. Pretesting oxygen saturation was noted to be 92% on room air. With ambulation, the patient desaturated on several occasions requiring the escalation in supplemental flow rate to 4 L/min to maintain appropriate saturations. Recommendations Recommendations: 4 L/min of supplemental oxygen is required with exertion.
== END | disposition home or self-care (01) ==
LOC: PSN 12:24
PROVIDERS: PCP Nurse Practitioner Family; Referring Provider Nurse Practitioner Acute Care; Visit Provider Nurse Practitioner Acute Care
DX: J44.89 Other specified chronic obstructive pulmonary disease (principal)
CPT/HCPCS: 94618